=== PATIENT | female | born 1980 | race Caucasian/White ===

== ENCOUNTER 2024-04-09 00:56 | Emergency (ER) | payer OTHER ==
[2024-04-09] MEDS ORDERED: Morphine 4 MG/ML VIAL ONE ×2 (01:38→03:58)
[2024-04-09] MEDS ORDERED: Ondansetron PF 4 MG/2 ML Vial ONE (01:38)
[2024-04-09] MEDS ORDERED: Dicyclomine 20 MG/2 ML VIAL ONE (01:38)
[2024-04-09 02:01] LABS: #Basophils 0.1 thou/uL (0.0-0.2); #Eosinophils 0.2 thou/uL (0.0-0.7); #Lymphocytes 4.4 thou/uL (1.20-3.40); #Monocytes 0.4 thou/uL (0.11-0.59); #Neutrophils 6.2 thou/uL (1.40-6.50); %Basophils 1.2 % (0.0-1.0); %Lymphocytes 38.4 % (21.0-51.0); %Monocytes 3.9 % (0.0-10.0); %Neutrophils 54.5 % (42.0-75.0); Hematocrit 52.5 % (36.0-47.0); Hemoglobin 16.4 g/dL (12.0-16.0); Mean Corpuscular HGB CONC 31.3 g/dL (32.0-36.0); Mean Corpuscular Hemoglobin 28.6 pg (27.0-31.0); Mean Corpuscular Volume 91.3 fl (78.0-98.0); Mean Platelet Volume 8.8 fL (7.4-10.4); Platelet Count 405 10x3/uL (130-400); RBC Distribution Width 12.2 % (11.5-14.5); Red Blood Cell (RBC) Count 5.74 mill/uL (4.20-5.40); White Blood Cell (WBC) Count 11.3 10x3/uL (4.8-10.8)
[2024-04-09 02:03] LABS: ALT (SGPT) 30 U/L (8-55); AST (SGOT) 25 U/L (5-34); Alkaline Phosphatase 58 U/L (40-110); Anion Gap 17 mmol/L (10-20); BUN (Urea Nitrogen) 12 mg/dL (7.0-18.7); Bilirubin, Total 0.3 mg/dL (0.2-1.2); Calc. Creatinine Clearance 0 mL/min (70-130); Calcium 10.6 mg/dL (7.8-10.44); Carbon Dioxide 27 mmol/L (22-29); Chloride 100 mmol/L (98-107); Estimated GFR 53; Globulin 3.5 g/dL (2.4-3.5); Glucose 117 mg/dL (70-105); Lipase 96 U/L (8-78); Potassium 3.6 mmol/L (3.5-5.1); Protein, Total 7.5 g/dL (6.0-8.3); Sodium 140 mmol/L (136-145)
[2024-04-09 02:47] LABS: Bilirubin Negative (Negative); Blood, Urine Negative (Negative); Clarity Clear (Clear); Glucose, Urine (Dipstick) Negative (Negative); Ketone, Urine Negative (Negative); Leukocyte Negative (Negative); Nitrite Negative (Negative); Protein, Urine (Dipstick) Negative (Neg-Trace); Specific Gravity, Urine 1.015 (1.005-1.030); Urobilinogen 0.2 mg/dL (Less than 2)
[2024-04-09 02:56] LABS: Bacteria/HPF None Seen HPF (None Seen); CAUTI Indications for Culture Pelvic or flank pain; RBC/HPF None Seen HPF (0-3); WBC/HPF None Seen HPF (0-3); Yeast-Budding 1+ HPF (None Seen)
[2024-04-09 02:57] LABS: Urine Culture Reflex No No
[2024-04-09] MEDS ORDERED: Ketorolac Tromethamine 30 MG (1 mL) VIAL ONE (03:58)
[2024-04-09] MEDS ORDERED: metroNIDAZOLE 250 MG TAB ONE (04:10)
[2024-04-09] MEDS ORDERED: Ciprofloxacin 500 MG TAB ONE (04:10)
[2024-04-09] MEDS ORDERED: Iopamidol 370 76% 100 ML VIAL ONE (12:16)
== END 2024-04-09 04:25 | disposition home or self-care (01) ==
LOC: BURERS 00:56
DX: A09 Infectious gastroenteritis and colitis, unspecified (principal); I10 Essential (primary) hypertension; F17.290 Nicotine dependence, other tobacco product, uncomplicated; Z79.899 Other long term (current) drug therapy
CPT/HCPCS: 74177; 80053; 81001; 83605; 83690; 85025; 96361; 96372; 96374; 96375; 96376; J1885; J2272; J2405; Q9967